=== PATIENT | female | born 1960 | race Caucasian/White ===

== ENCOUNTER → 2021-11-29 18:00 | Outpatient (BNVA) | payer OTHER, SELFPAY | PROVIDERS: Visit Provider Nurse Practitioner Family | DX: N39.0 Urinary tract infection, site not specified (principal) | CPT/HCPCS: 81000 ==

== ENCOUNTER → 2022-05-03 14:31 | Outpatient (BNVA) | payer OTHER, SELFPAY | PROVIDERS: Visit Provider Obstetrics & Gynecology | DX: Z01.411 Encounter for gynecological examination (general) (routine) with abnormal findings (principal) | CPT/HCPCS: 87624 ==

== ENCOUNTER 2022-06-02 13:26 | Outpatient (CLI) | payer OTHER, SELFPAY ==
--- NOTE | 2022-06-02 13:45 | US_ITS ---
WS: [id number] TRANSABDOMINAL PELVIC AND TRANSVAGINAL PELVIC ULTRASOUND HISTORY: N81.4 - Uterovaginal prolapse, unspecified COMPARISON: None available. Uterus: 6.2 cm x 4.3 cm x 3.1 cm. Uterus is anteverted. No fibroid or mass. There is mixed echogenici ty mass in the region of the cervix. There is widening of the cervix and mixed echogenicity mass with a few echogenic foci distending the cervix. Mass measures 14 x 11 mm in the cervix. Endometrium: 0.6 cm. Top normal size in a postmenopausal patient with a few cystic areas. Right ovary: 2.0 cm x 1.6 cm x 2.0 cm. Normal size and vascularity. No mass. Left ovary: 1.6 cm x 1.4 cm x 1.4 cm. Very difficult to visualize. Vascularity is difficult to obtain . No free fluid. US/US pelvic with transvaginal IMPRESSION: 1. Abnormal cervix. Mild widening of the cervix with heterogeneous soft tissue distending the cervical canal. Cervical mass measures 14 x 11 mm. If cervical biopsy has not been performed this should be attempted. 2. Top normal size endometrium with a few cystic areas. Recommend short-term follow-up ultrasound or biopsy.
== END 2022-06-02 13:27 | disposition home or self-care (01) ==
PROVIDERS: PCP Nurse Practitioner Family; Visit Provider Obstetrics & Gynecology
DX: N81.4 Uterovaginal prolapse, unspecified (principal)
CPT/HCPCS: 76830; 76856

== ENCOUNTER 2022-06-06 11:44 | Day surgery (SDC) | payer OTHER, SELFPAY ==
[2022-06-05 15:30] VITALS: BMI 28.6
--- NOTE | 2022-06-05 16:21 | P.HP_ITS ---
Providers/Chief Complaint Admitting Physician: Dr. Hou Primary Care Provider: Cindy Hidalgo APN History of Present Illness Katie Aguilar is a 61 year old female who saw me for consultation for a possible lesion on her cervix and cystocele.? She reports her last pap was in 2014.? She had an abnormal pap in the , but all normal since then.? They did no treatment for her abnormal pap, they just repeated and it was normal.? She was having RLQ pain and that is what caused her to go to the doctor.? On exam, the doctor saw a lesion on her cervix and a cystocele. She was referred to me. On exam, I saw the lesion in question. I performed a pap smear and ordered an ultrasound. I was unable to get a biopsy at that time, due to her large cystocele. I tentatively scheduled her for a hysterectomy, pending results of the pap and ultrasound. The pap was normal. The ultrasound shows a lesion 14x11 mm, which is distorting the cervix. I scheduled the patient for a cervical biopsy and possible leep procedure. Review of Systems General: Reports: 10 or more systems reviewed and unremarkable except in HPI and below Medications/Allergies Home Medications Medication Instructions Recorded Confirmed Last Taken Type psyllium husk 0.52 gram capsule 0.52 g PO DAILY 05/03/22 06/05/22 Unknown History atorvastatin 20 mg tablet 20 mg PO DAILY 06/05/22 06/05/22 Unknown History calcium 600 mg capsule 600 mg PO DAILY 06/05/22 06/05/22 Unknown History lisinopril 10 mg tablet 10 mg PO DAILY 06/05/22 06/05/22 Unknown History Allergies Allergy/AdvReac Type Severity Reaction Status Date / Time azacitidine Allergy Intermediate Rash Verified 05/03/22 13:43 azithromycin Allergy Intermediate Rash Verified 05/03/22 13:43 Penicillins Allergy Intermediate Rash Verified 05/03/22 13:43 PFSH Acute PFSH: Surgical History Status post cervical polyp removal (04/2022) Family History (Updated 05/03/22 @ 13:51 by Rosario Martinez MA) Mother Heart disease Hypertension Denies family history of Colon cancer Ovarian cancer Diabetes Hypercholesteremia Breast cancer Uterine cancer Thyroid disease Stroke Social History Smoking and tobacco status: never smoked Vitals/I&O/Wt Weight last 48 hrs Weight 172 lb Weight 172 lb Physical Exam Const: COMMON NORMALS: no acute distress, average body habitus, patient oriented x3, no limitations, healthy appearing, alert and well nourished GENERAL APPEARANCE: cooperative, comfortable, well kempt and well developed ORIENTATION/CONSCIOUSNESS: Yes awake, Yes oriented to person, Yes oriented to place and Yes oriented to time Resp: COMMON NORMALS: normal respiratory effort and clear to auscultation bilaterally EFFORT & INSPECTION: Yes able to speak in complete sentences Cardio: COMMON NORMALS: regular rate and regular rhythm GI: COMMON NORMALS: Soft to palpation and non-tender : COMMON NORMALS: Yes normal external appearance, Yes normal appearance of the vagina, Yes normal bimanual exam, Yes No adnexal tenderness and Yes no masses SPECULUM EXAM - CERVIX: Yes Cervical lesion present (wedge from 9:00 to 12:00) Extremity: COMMON NORMALS: no calf tenderness Psych: COMMON NORMALS: mental status grossly normal, Normal thought process present, cooperative, normal affect and speech normal A&P Assessment and plan (1) Lesion of cervix: plan colposcopy with cervical biopsy, possible leep procedure Risks, benefits and alternatives to procedure were discussed with the patient including but not limited to: pain, bleeding, infection, development of a blood clot or pulmonary embolism, damage to bowel, bladder, ureters, blood vessels, formation of scar tissue or even . . These are the most common complications, but there may be other, unforseen complications that could arise during surgery. The patient accepts these risks and desires to proceed. Status: Acute Attestations Medical Necessity Statement*: * the patient will have outpatient surgery and go home Coding Level of Care Code Acute [facility] Diagnoses Lesion of cervix N88.9
[2022-06-06] VITALS (7 sets, daily range): BP systolic 127–145; BP diastolic 88–96; PULSE 64–82; RESP 14–20; TEMP 36.4–36.6; O2SAT 95–98
[2022-06-06] MEDS: gabapentin 300 mg Capsule PO (12:35)
[2022-06-06] MEDS: sodium chloride 0.9% 1,000 ML 30 ML IV (12:35)
[2022-06-06] MEDS: acetaminophen 1,000 MG/100 ML PIGGYBACK 400 MG IV (12:36)
--- NOTE | 2022-06-06 12:52 | W.PM.OPSUD ---
Surgery/Procedure H&P Update DATE OF PROCEDURE: June 06, 2022 DATE H&P PERFORMED: 06/05/22 H&P UPDATE INFORMATION: I have reviewed H&P completed within last 30 days, I have examined patient prior to procedure and No changes to prior documentation PREOP DIAGNOSIS: cervical mass PLANNED PROCEDURE: Operation Date: 06/06/22 13:30 Proposed Procedures p Colposcopy with cervical biopsy 69153,N88.8(Not Applicable) - Harriett Hou MD Related Problem List Diagnoses (1) Lesion of cervix:
--- NOTE | 2022-06-06 12:53 | ANES.PREANE2 ---
Pre-Anesthetic Assessment Height/Weight: Height 1.65 m Weight 78.018 kg Preop Diagnosis: cervical mass Operation Date: 06/06/22 13:30 Proposed Procedures p Colposcopy with cervical biopsy 66258,N88.8(Not Applicable) - Harriett Hou MD Familial anesthetic complications: None Was Beta Darlene taken within 24 hours: N/A Was Clonidine taken within 24 hours: N/A Last intake: Intake Last Liquid Date 06/05/22 Last Liquid Time 20:00 Last Solid Date 06/05/22 Last Solid Time 20:00 Social No alcohol and No tobacco Exam alert, oriented x 3, clear to auscultation bilaterally and regular rate & rhythm Airway Mallampati: Class II Dentition: full CV/HEM Hypertension Metabolic Hyperlipidemia Anesthetic Plan ASA status: 2 Anesthesia: General Risk of > 500 ml blood loss (7ml/kg in children): No Medications/Allergies Home Medications Medication Instructions Recorded Confirmed Last Taken Type atorvastatin 20 mg tablet 20 mg PO DAILY 06/05/22 06/06/22 06/05/22 History calcium 600 mg capsule 600 mg PO DAILY 06/05/22 06/06/22 06/05/22 History lisinopril 10 mg tablet 10 mg PO DAILY 06/05/22 06/06/22 06/05/22 History Allergies Allergy/AdvReac Type Severity Reaction Status Date / Time azithromycin Allergy Intermediate Rash Verified 05/03/22 13:43 Penicillins Allergy Intermediate Rash Verified 05/03/22 13:43 Current Medications Generic Name Dose Route Start Last Admin Trade Name Freq PRN Reason Stop Dose Admin Gabapentin 300 mg 06/06/22 12:30 06/06/22 12:35 Gabapentin 300 Mg Capsule PO 300 mg ONCE GAIL Administration Sodium Chloride 1,000 mls @ 30 mls/hr 06/06/22 12:30 06/06/22 12:35 Sodium Chloride 0.9% IV 30 mls/hr .Q24H GAIL Administration PFSH Anesthesia Surgical History Status post cervical polyp removal (04/2022) Family History (Updated 05/03/22 @ 13:51 by Rosario Martinez MA) Mother Heart disease Hypertension Denies family history of Colon cancer Ovarian cancer Diabetes Hypercholesteremia Breast cancer Uterine cancer Thyroid disease Stroke Social History Smoking and tobacco status: never smoked Data Anesthesia Cardiac Studies: No Data to Display
[2022-06-06] MEDS: ceFAZolin 2,000 MG in sodium chloride 0.9% (plus) 50 ML 100 MG IV (14:07)
--- NOTE | 2022-06-06 14:44 | PM.OP ---
Operative Report Date of procedure: June 06, 2022 Pre-op diagnosis: Preop Diagnosis cervical mass Post-op diagnosis: same Post-op findings: small mass in cervical canal, removed with Loop excision Procedure done: loop excisional procedure Specimens removed/disposition: anterior and posterior cervix to pathology Surgeon: Harriett Hou Anesthesia: MAC Estimated blood loss (mL): 0 IV fluids (mL): 700 Urine output (mL): 0 Complications: none Condition: stable Disposition: PACU Procedure: The patient was taken to the operating room where monitored anesthesia was administered and found to be adequate. A weighted speculum was placed into the vagina and the anterior lip of the cervix was grasped with a single-tooth tenaculum. Inspection revealed a small anterior mass in the cervical canal. Using an 8 x 10 loop I made 1 pass and removed the mass. I performed another sweep of the posterior. There was excellent hemostasis. All instruments were removed. sponge lap and needle counts were correct x3. She was taken to the recovery room in stable condition.
--- NOTE | 2022-06-06 14:53 | SUR.PHASEI ---
1447 PT TO PACU SLEEPY WITH GOOD RESP EFFORT, MONITOR SR NO ECTOPY NOTED IV TO RT AC #20 WITH NS 250 ML UP AT KVO RATE PER GRAVITY, ID BAND TO RT WRIST, PT ID'D WITH 2 IDENTIFIERS, VSS. ABDOMEN SOFT WITH CANDE PAD D/I BILAT SCDS ON .
--- NOTE | 2022-06-06 14:59 | PM.DCS ---
Discharge Providers Date of Admission: 06/06/22 Date of Discharge: June 06, 2022 Attending Provider at Discharge: Harriett Hou MD Primary Care Provider: Cindy Hidalgo APN Diagnoses at Discharge Discharge Diagnosis (1) Lesion of cervix: Status: Acute Hospital Course Hospital Course The patient was admitted for a procedure. She did well postoperatively and was ready for discharge. Discharge Data Studies Completed and Pending Pending at discharge Category Date Time Status Pathology: Surgical [PTH] Routine Pth 06/06/22 14:43 Received Vitals Last Vital Signs Temp 97.6 F 06/06/22 14:48 Pulse 78 06/06/22 14:55 Resp 20 H 06/06/22 14:55 BP 136/95 06/06/22 14:55 Pulse Ox 96 06/06/22 14:55 Discharge Plan Discharge Patient Disposition: Home Condition: Stable Prescriptions: Continued calcium 600 mg Capsule 600 mg PO DAILY 0RF atorvastatin 20 mg Tablet 20 mg PO DAILY 0RF lisinopril 10 mg Tablet 10 mg PO DAILY 0RF Discharge Orders: Discharge Order (Routine); Ordered 06/06/22 Ordered By: Harriett Hou Discharge Attestations Time Spent in Discharge Care*: less than 30 min Quality Metrics Clinical Quality Measures [ No reported AMI, CVA or VTE this stay] Coding Level of Care Code Acute g [facility] note Diagnoses Lesion of cervix N88.9
--- NOTE | 2022-06-06 15:09 | ANE.PACU2 ---
Inpatient post-anesthesia follow up: Airway intact: Yes Vital signs: Temperature 97.8 F Pulse Rate 71 Respiratory Rate 16 Blood Pressure 136/95 Pulse Oximetry 98 Oxygen Delivery Me thod Room Air Oxygen Flow Rate Fraction of Inspir ed Oxygen Hydration adequate: Yes Nausea and vomiting: No Pain level: 1 Mental status: Baseline
== END 2022-06-06 15:58 | disposition home or self-care (01) ==
PROVIDERS: PCP Nurse Practitioner Family; Visit Provider Obstetrics & Gynecology
PROC: 0UJH8ZZ Inspection of Vagina and Cul-de-sac, Via Natural or Artificial Opening Endoscopic (ICD-10-PCS; CPT 57460; principal; 2022-06-06 13:20)
DX: N88.8 Other specified noninflammatory disorders of cervix uteri (principal)
CPT/HCPCS: 57460; 88307; J1100; J2405; J2704; J3010; J7030

== ENCOUNTER 2022-06-13 10:21 | Observation (INO) | payer OTHER, SELFPAY ==
[2022-06-07 12:46] VITALS: BMI 29.2
[2022-06-07 13:30] LABS: Basophils % 0.2 %; Hematocrit 41.7 % (37.0-47.0); Hemoglobin 14.1 g/dL (11.5-15.3); Lymphocytes % 10.1 %; Mean Corpuscular HGB Conc 33.8 g/dL (30.0-36.0); Mean Corpuscular Hemoglobin 30.8 pg (28.0-34.0); Mean Platelet Volume 10.4 fL (7.4-10.4); Monocytes # 1.2 10^3/uL (0.2-0.9); Monocytes % 6.1 %; Neutrophils # 16.62 10^3/uL (1.8-7.7); Nucleated Red Blood Cells % 0 %; Platelet Count 316 10^3/cmm (130-400); Red Blood Count 4.58 10^6/uL (4.1-5.3); Red Cell Distribution Width 11.2 % (12.1-15.1)
[2022-06-07 13:54] LABS: Anion Gap 16.2 (5-19); Blood Urea Nitrogen 14 mg/dL (8-23); Calcium 9.9 mg/dL (8.5-10.5); Carbon Dioxide 25 mmol/L (22-29); Chloride 102 mmol/L (98-107); Creatinine Clr Calc Pharmacy 72.3409; Glomerular Filtration Rate 72.4 mL/min (90-130); Glucose 128 mg/dL (65-115); Osmolality Calculated 290 mOsm/kg (285-295); Potassium 4.2 mmol/L (3.5-5.1); Sodium 139 mmol/L (136-145)
--- NOTE | 2022-06-07 15:01 | ANES.PREANE2 ---
Pre-Anesthetic Assessment Height/Weight: Height 1.63 m Weight 77.111 kg Preop Diagnosis: cervical mass Operation Date: 06/13/22 07:00 Proposed Procedures p Laparoscopic assisted vaginal hysterectomy, bilateral salpingectomy 99026, anterior and posterior repair 29367, mid urethral sling 85759,N81.4(Not Applicable) - Harriett Hou MD s Salpingectomy(Bilateral) - Harriett Hou MD s Anterior Repair(Not Applicable) - Harriett Hou MD s Posterior Repair(Not Applicable) - Harritet Hou MD s Sling Single Incision Midurethral Sling(Not Applicable) - Harriett Hou MD Familial anesthetic complications: None Was Beta Darlene taken within 24 hours: N/A Was Clonidine taken within 24 hours: N/A Social No alcohol and No tobacco Exam alert, oriented x 3, clear to auscultation bilaterally and regular rate & rhythm Airway Submandibular: within normal limits Cervical ROM: within normal limits Mallampati: Class I Comments: Comments: Missing some teeth History/ROS No significant complaints Pulmonary None reported CV/HEM Hypertension Uterine prolapse Cystocele Hepatic None reported GI Gastroesophageal Reflux Disease and None reported Metabolic None reported Musc/skel None reported Neuropsych None reported Anesthetic Plan ASA status: 2 Anesthesia: Anesthesia Evaluation and General Other: We discussed risk and benefits of general anesthesia including PONV, sore throat (sometimes severe), corneal abrasion, positioning and peripheral nerve injuries, life threatening allergic reaction, post operative ICU admission requiring prolonged intubation, stroke, heart attack, , and rare incidences of recall. Patient consents to proceed with general anesthesia. Risk of > 500 ml blood loss (7ml/kg in children): No Medications/Allergies Home Medications Medication Instructions Recorded Confirmed Last Taken Type atorvastatin 20 mg tablet 20 mg PO DAILY 06/05/22 06/07/22 06/05/22 History calcium 600 mg capsule 600 mg PO DAILY 06/05/22 06/07/22 06/05/22 History lisinopril 10 mg tablet 10 mg PO DAILY 06/05/22 06/07/22 06/05/22 History Allergies Allergy/AdvReac Type Severity Reaction Status Date / Time azithromycin Allergy Intermediate Rash Verified 06/07/22 12:45 Penicillins Allergy Intermediate Rash Verified 06/07/22 12:45 [facility] Anesthesia Surgical History Status post cervical polyp removal (04/2022) Family History Mother Heart disease Hypertension Denies family history of Colon cancer Ovarian cancer Diabetes Hypercholesteremia Breast cancer Uterine cancer Thyroid disease Stroke Social History Smoking and tobacco status: never smoked Data Anesthesia : 06/07/22 12:55 06/07/22 12:55 Short CBC 06/07/22 Range/Units 12:55 WBC 20.0 H (4.0-10.0) 10^3/uL Hgb 14.1 (11.5-15.3) g/dL Hct 41.7 (37.0-47.0) % MCV 91.0 (81-99) fl Plt Count 316 (130-400) 10^3/cmm Neut % (Auto) 83.0 % Neut # (Auto) 16.62 H (1.8-7.7) 10^3/uL BMP 06/07/22 12:55 Sodium 139 Potassium 4.2 Chloride 102 Carbon Dioxide 25 BUN 14 Creatinine 0.8 Glucose 128 H Calcium 9.9 Cardiac Studies: No Data to Display
[2022-06-13] VITALS (21 sets, daily range): BP systolic 93–174; BP diastolic 60–106; PULSE 57–71; RESP 14–18; TEMP 36.6–37.3; O2SAT 92–95
[2022-06-13] MEDS: sodium chloride 0.9% 1,000 ML 30 ML IV (06:29)
[2022-06-13 06:39] LABS: Basophils % 0.4 %; Eosinophils # 0.2 10^3/uL (0.0-0.8); Eosinophils % 1.5 %; Hematocrit 43.6 % (37.0-47.0); Hemoglobin 14.9 g/dL (11.5-15.3); Lymphocytes # 2.2 10^3/uL (0.8-4.8); Lymphocytes % 21.3 %; Mean Corpuscular HGB Conc 34.2 g/dL (30.0-36.0); Mean Corpuscular Hemoglobin 31.1 pg (28.0-34.0); Mean Platelet Volume 10.3 fL (7.4-10.4); Monocytes # 0.8 10^3/uL (0.2-0.9); Monocytes % 7.3 %; Neutrophils % 69.2 %; Nucleated Red Blood Cells % 0 %; Platelet Count 281 10^3/cmm (130-400); Red Blood Count 4.79 10^6/uL (4.1-5.3); Red Cell Distribution Width 11.4 % (12.1-15.1); White Blood Count 10.4 10^3/uL (4.0-10.0)
[2022-06-13] MEDS: phenazopyridine 100 mg Tablet 200 MG PO (06:50)
[2022-06-13] MEDS: acetaminophen 1,000 MG/100 ML PIGGYBACK 400 MG IV (06:50)
[2022-06-13] MEDS: gabapentin 300 mg Capsule PO (06:50)
[2022-06-13] MEDS: CELEcoxib 200 mg Capsule 400 MG PO (06:50)
[2022-06-13] MEDS: ceFAZolin 2,000 MG in sodium chloride 0.9% (plus) 50 ML 100 MG IV ×3 (07:00→23:03)
--- NOTE | 2022-06-13 07:02 | W.PM.OPSUD ---
Surgery/Procedure H&P Update DATE OF PROCEDURE: June 13, 2022 DATE H&P PERFORMED: 06/05/22 H&P UPDATE INFORMATION: I have reviewed H&P completed within last 30 days, I have examined patient prior to procedure and Changes to prior documentation as noted here CHANGES TO PREVIOUS DOCUMENTATION: The cervical biopsy showed likely nabothian cyst. No malignancy identified. PREOP DIAGNOSIS: uterine prolapse PLANNED PROCEDURE: Operation Date: 06/13/22 07:00 Proposed Procedures p Laparoscopic assisted vaginal hysterectomy, bilateral salpingectomy 75946, anterior and posterior repair 49495, mid urethral sling 11559,N81.4(Not Applicable) - Harriett Hou MD s Salpingectomy(Bilateral) - Harriett Hou MD s Anterior Repair(Not Applicable) - Harriett Hou MD s Posterior Repair(Not Applicable) - Harriett Hou MD s Sling Single Incision Midurethral Sling(Not Applicable) - Harriett Hou MD Related Problem List Diagnoses (1) Lesion of cervix: (2) Uterine prolapse: (3) Cystocele:
--- NOTE | 2022-06-13 07:23 | P.ANESUD_ITS ---
Pre-Anesthetic Update Pre-Anesthetic Assessment: Date of Surgery/Procedure: 06/13/22 Preop Ariadna gnosis: uterine prolapse Proposed Procedure: Operation Date: 06/13/22 07:00 Proposed Procedures p Laparoscopic assisted vaginal hysterectomy, bilateral salpingectomy 57865, anterior and posterior repair 76906, mid urethral sling 45033,N81.4(Not Applicable) - Harriett Hou MD s Salpingectomy(Bilateral) - Harriett Hou MD s Anterior Repair(Not Applicable) - Harriett Hou MD s Posterior Repair(Not Applicable) - Harriett Hou MD s Sling Single Incision Midurethral Sling(Not Applicable) - Harriett Hou MD Any changes to Pre-Anesthetic Assessment?: No Last Intake: Intake Last Liquid Date 06/12/22 Last Liquid Time 22:00 Last Solid Date 06/12/22 Last Solid Time 18:00 Labs Last 48hrs: Short CBC 06/13/22 Range/Units 06:11 WBC 10.4 H (4.0-10.0) 10^3/ uL Hgb 14.9 (11.5-15.3) g/dL Hct 43.6 (37.0-47.0) % MCV 91.0 (81-99) fl Plt Count 281 (130-400) 10^3/c mm Neut % (Auto) 69.2 % Neut # (Auto) 7.20 (1.8-7.7) 10^3/u L Vitals: Temperature 99.2 F 06/13/22 05:56 Temperature Source Temporal Artery S can 06/13/22 05:56 Pulse Rate 71 06/13/22 05:56 Respiratory Rate 18 06/13/22 05:56 Blood Pressure 174/106 06/13/22 05:56 Blood Pressure Muriel n 128 06/13/22 05:56 Pulse Oximetry 94 06/13/22 05:56 Oxygen Delivery Me thod 06/13/22 05:58 Exam: Pre-Anes Outpt Exam: alert, oriented x 3, clear to auscultation bilaterally and regular rate & rhythm Cardiac Studies: No Data to Display
--- NOTE | 2022-06-13 08:01 | SUR.OPER ---
family updated of surgical status
[2022-06-13] MEDS: vasopressin 20 unit/mL INJ INJECTION (09:00)
--- NOTE | 2022-06-13 10:21 | P.OP_ITS ---
Operative Report Date of procedure: June 13, 2022 Pre-op diagnosis: Preop Diagnosis uterine prolapse Post-op diagnosis: same Post-op findings: large cystocele and uterine prolapse, grade 2 rectocele Procedure done: LAVH, bilateral salpingectomy, anterior, colporrhaphy, perineorrhaphy, cystoscopy Specimens removed/disposition: uterus, bilateral fallopian tubes to pathology Surgeon: Harriett Hou Anesthesia: General Estimated blood loss (mL): 150 IV fluids (mL): 1,200 Urine output (mL): 400 Complications: none Condition: stable Disposition: PACU Procedure: The patient was taken to the operating room where general anesthesia was administered and found to be adequate. She was prepped and draped in the normal sterile fashion in the dorsal lithotomy position in [facility]. A Schmitt catheter was placed. A weighted speculum was placed into the vagina and the anterior lip of the cervix was grasped with a single tooth tenaculum. The Zumi uterine manipulator was placed. The weighted speculum was removed. The gloves were changed and attention was turned to the abdomen. A 5 mm infraumbilical incision was made. Using a 5 mm port with the camera, the port was placed into the abdomen. The abdomen was insufflated. Two low, lateral 5 mm ports were placed on the left and right under direct visualization from the camera. The right tube was grasped and elevated. Using the laparoscopic cautery, the mesosalpinx was divided between the ovary and tube. The tube was removed. This was performed the same way on the left. The uteroovarian ligaments as well as the round ligaments were ligated. Attention was then turned to the vaginal portion of the procedure. The weighted speculum was placed into the vagina. The zumi manipulator was removed. The single tooth tenaculum was removed and replaced with the radha's tenaculum. 10 mL of dilute Pitressin was injected at the vesicovaginal juncti on. A circumferential incision was made at the vesicovaginal junction and the vaginal mucosa reflected cephalad. The posterior peritoneum was entered sharply with the Metzenbaum scissors and the long weighted speculum replaced. Using the Tj clamps the uterosacral ligaments were clamped cut and suture-ligated. The anterior peritoneum was entered sharply with the metzenbaum scissors. Then s equentially the uterine arteries and cardinal ligaments were clamped cut and suture-ligated. A single-tooth tenaculum was used to deliver the uterus. The remaining segement of the utero-ovarian ligaments were clamped cut and suture- ligated bilaterally and the specimen was removed. There was good hemostasis with only mild bleeding from the cuff. The peritoneum was closed with a pursestring using 2-0 Vicryl. The vaginal cuff was closed with 0 Vicryl in a running locked pattern incorporating the uterosacral ligaments into the lateral aspects of the vaginal cuff. The vaginal cuff was identified and an allis clamp was placed in the midline of the vaginal mucosa, approximately 2 cm anterior to the cuff. A second allis clamp was placed in the midline of the vaginal mucosa, approximately 3 cm from the introitus. An incision was made in the midline from clamp to clamp. The vaginal mucosa was clamped laterally and the cystocle dissected off of the vesicovaginal fascia. The cystocele was packed away and the vesicovaginal fascia brought together in the midline with figure of 8 interrupted sutures of O-Vicryl. The packing was removed and the excess vaginal tissue trimmed. The incision was repaired with 0-Vicryl in a running fashion. Attention was then turned to the perineorrhphy. Allis clamps were placed on the posterior fourchette. A 3 cm wedge of the fourchette was removed. This was repaired in the usual fashion with O-vicryl. The Schmitt catheter was removed and the cystoscope advanced into the bladder. The patient was given pyridium and bilateral spill was noted. There were no injuries or deficits noted in the bladder. The cystoscope was removed and the Schmitt was replaced. Vaginal packing was placed for good hemostasis. The gloves and gowns were changed and attention was turned to the abdomen. The ports were closed with 2-0 monocryl with skin glue. The patient tolerated the procedure well. Sponge lap and needle counts were correct x3. She was taken to the recovery room in stable condition.
[2022-06-13] MEDS: dextrose 5%-sod chloride 0.9% 1,000 ML 125 ML IV ×2 (11:54→19:43)
[2022-06-13] MEDS: ketorolac 30 mg/mL INJ IVP ×3 (11:54→23:04)
--- NOTE | 2022-06-13 15:56 | ANE.PACU2 ---
Inpatient post-anesthesia follow up: Airway intact: Yes Vital signs: Temperature 97.8 F Pulse Rate 57 Respiratory Rate 14 Blood Pressure 108/71 Pulse Oximetry 93 Oxygen Delivery Me thod Room Air Oxygen Flow Rate Fraction of Inspir ed Oxygen Hydration adequate: Yes Nausea and vomiting: No Pain level: 3 Mental status: Baseline
[2022-06-13] MEDS: HYDROcodone-acetaminophen 5-325 mg Tablet PO (16:57)
[2022-06-13] MEDS: docusate sodium 100 mg Capsule PO (19:43)
--- NOTE | 2022-06-13 20:30 | PC.NURSE ---
Patient ambulated 2 laps around the unit.
[2022-06-14] MEDS: HYDROcodone-acetaminophen 5-325 mg Tablet PO (03:47)
[2022-06-14 04:00] VITALS: BP 115/65; PULSE 64; TEMP 36.7; O2SAT 95
[2022-06-14] MEDS: ketorolac 30 mg/mL INJ IVP (05:08)
--- NOTE | 2022-06-14 06:10 | PC.NURSE ---
Schmitt present upon admission to OB following surgery.
[2022-06-14 06:13] LABS: Hematocrit 32.9 % (37.0-47.0); Hemoglobin 11.5 g/dL (11.5-15.3); Mean Corpuscular Hemoglobin 31.2 pg (28.0-34.0); Mean Corpuscular Volume 89.2 fl (81-99); Mean Platelet Volume 10.8 fL (7.4-10.4); Platelet Count 243 10^3/cmm (130-400); Red Blood Count 3.69 10^6/uL (4.1-5.3); Red Cell Distribution Width 11.4 % (12.1-15.1); White Blood Count 16.4 10^3/uL (4.0-10.0)
--- NOTE | 2022-06-14 07:25 | P.DS_ITS ---
Discharge Providers Date of Admission: 06/13/22 10:21 Date of Discharge: June 14, 2022 Attending Provider at Admission: Harriett Hou MD Attending Provider at Discharge: Harriett Hou MD Primary Care Provider: Cindy Hidalgo APN Diagnoses at Discharge Discharge Diagnosis (1) Lesion of cervix: Status: Acute (2) Uterine prolapse: Status: Acute (3) Cystocele: Status: Acute Hospital Course Hospital Course The patient was admitted for surgery. She did well postoperatively and was ready for discharge on day #1 Physical Exam Narrative: The patient is doing well this morning. She reports a lot of pain relief once the catheter and packing was removed. Const: COMMON NORMALS: no acute distress, average body habitus, patient oriented x3, no limitations, healthy appearing, alert and well nourished GENERAL APPEARANCE: cooperative, comfortable, well kempt and well developed Resp: COMMON NORMALS: normal respiratory effort EFFORT & INSPECTION: Yes able to speak in complete sentences GI: COMMON NORMALS: Soft to palpation and non-tender PALPATION: Yes Soft to palpation Extremity: COMMON NORMALS: no calf tenderness Neuro: COMMON NORMALS: patient oriented x3 SENSORIUM/ORIENTATION: Yes alert Psych: COMMON NORMALS: mental status grossly normal, Normal thought process present, cooperative, normal affect and speech normal APPEARANCE: Yes well kempt SPEECH: Yes normal speech THOUGHT PROCESS: Normal thought process present Urinary Catheter Management: Schmitt Latex: Cath Placed During This Visit: yes, but has since been removed by the nurse Reason for Continuing Indwelling Catheter: Perioperative Use in Selected Surgeries Urinary Catheter Date of Insertion: 06/13/22 Date Urinary Catheter Removed: 06/14/22 Time Urinary Catheter Discontinued: 06:00 Discharge Data Studies Completed and Pending Pending at discharge Category Date Time Status Retype for Patiets ABO/Rh Routine Lab 06/07/22 15:40 Received Type and Screen Routine Lab 06/09/22 15:42 Uncollected Urine Culture Routine Lab 06/13/22 07:38 Received Pathology: Surgical [PTH] Routine Pth 06/13/22 10:14 Received Laboratory Results WBC 16.4 10^3/uL (4.0-10.0) H 06/14/22 05:15 RBC 3.69 10^6/uL (4.1-5.3) L 06/14/22 05:15 Hgb 11.5 g/dL (11.5-15.3) 06/14/22 05:15 Hct 32.9 % (37.0-47.0) L 06/14/22 05:15 MCV 89.2 fl (81-99) 06/14/22 05:15 MCH 31.2 pg (28.0-34.0) 06/14/22 05:15 MCHC 35.0 g/dL (30.0-36.0) 06/14/22 05:15 RDW 11.4 % (12.1-15.1) L 06/14/22 05:15 Plt Count 243 10^3/cmm (130-400) 06/14/22 05:15 MPV 10.8 fL (7.4-10.4) H 06/14/22 05:15 Neut % (Auto) 69.2 % 06/13/22 06:11 Lymph % (Auto) 21.3 % 06/13/22 06:11 [place] % (Auto) 7.3 % 06/13/22 06:11 Eos % (Auto) 1.5 % 06/13/22 06:11 Baso % (Auto) 0.4 % 06/13/22 06:11 Neut # (Auto) 7.20 10^3/uL (1.8-7.7) 06/13/22 06:11 Lymph # (Auto) 2.2 10^3/uL (0.8-4.8) 06/13/22 06:11 [place] # (Auto) 0.8 10^3/uL (0.2-0.9) 06/13/22 06:11 Eos # (Auto) 0.2 10^3/uL (0.0-0.8) 06/13/22 06:11 Baso # (Auto) 0.0 10^3/uL (0.0-0.1) 06/13/22 06:11 Nucleated RBC % (auto) 0 % 06/13/22 06:11 Nucleated RBCs # 0.0 /100WBC 06/13/22 06:11 Sodium 139 mmol/L (136-145) 06/07/22 12:55 Potassium 4.2 mmol/L (3.5-5.1) 06/07/22 12:55 Chloride 102 mmol/L (98-107) 06/07/22 12:55 Carbon Dioxide 25 mmol/L (22-29) 06/07/22 12:55 Anion Gap 16.2 (5-19) 06/07/22 12:55 BUN 14 mg/dL (8-23) 06/07/22 12:55 Creatinine 0.8 mg/dL (0.5-0.9) 06/07/22 12:55 GFR Calculation 72.4 mL/min (90-130) L 06/07/22 12:55 Glucose 128 mg/dL (65-115) H 06/07/22 12:55 Calculated Osmolality 290 mOsm/kg (285-295) 06/07/22 12:55 Calcium 9.9 mg/dL (8.5-10.5) 06/07/22 12:55 Blood Type O Positive 06/13/22 06:11 Rho(D) Type Positive 06/13/22 06:11 Antibody Screen Negative 06/13/22 06:11 Vitals Last Vital Signs Temp 98.1 F 06/14/22 04:00 Pulse 64 06/14/22 04:00 Resp 14 06/13/22 11:58 BP 115/65 06/14/22 04:00 Pulse Ox 95 06/14/22 04:00 O2 Del Method 06/14/22 04:00 Discharge Plan Discharge Patient Disposition: Home Condition: Stable Prescriptions: New ibuprofen 800 mg Tablet 800 mg PO Q8H Qty: 30 0RF hydrocodone-acetaminophen 5-325 mg Tablet 1 tab PO Q4H PRN (Reason: Moderate To Severe Pain) Qty: 30 0RF docusate sodium 100 mg Capsule 100 mg PO BID Qty: 60 0RF Continued calcium 600 mg Capsule 600 mg PO DAILY atorvastatin 20 mg Tablet 20 mg PO DAILY lisinopril 10 mg Tablet 10 mg PO DAILY Discharge Orders: Discharge Order (Routine); Ordered 06/14/22 Ordered By: Harriett Hou Referrals: Harriett Hou MD [Physician] - 06/19/22 8:00 am (1 week post-op: 06/19/22 @8:00. 6 week post-op: 07/24/22 @8:45. ) Patient Instructions: Laparoscopic Hysterectomy (DC), Anterior Vaginal Repair (DC), Posterior Vaginal Repair (DC), OB Discharge Report, OB Laproscopic Surgery - [facility], OB Food/Drug Interaction Guide, Opioid Safety Discharge Attestations Time Spent in Discharge Care*: less than 30 min Quality Metrics Clinical Quality Measures [ No reported AMI, CVA or VTE this stay] Coding Level of Care Code Acute Chg FW DC note Diagnoses Lesion of cervix N88.9 Uterine prolapse N81.4 Cystocele
[2022-06-14 09:10] VITALS: BP 107/70; PULSE 72; RESP 18; TEMP 37.1; O2SAT 99
[2022-06-14] MEDS: docusate sodium 100 mg Capsule PO (09:12)
[2022-06-14] MEDS: atorvastatin 40 mg Tablet 20 MG PO (09:18)
== END 2022-06-14 09:20 | disposition home or self-care (01) ==
LOC: OBGYN 10:21
PROVIDERS: Anesthesiology; Admitting Provider Obstetrics & Gynecology; PCP Nurse Practitioner Family; Visit Provider Obstetrics & Gynecology
PROC: 0UT9FZZ Resection of Uterus, Via Natural or Artificial Opening With Percutaneous Endoscopic Assistance (ICD-10-PCS; CPT 58240; principal; 2022-06-13 07:00)
PROC: 0JQC0ZZ Repair Pelvic Region Subcutaneous Tissue and Fascia, Open Approach (ICD-10-PCS; CPT 57240; 2022-06-13 07:00)
PROC: (CPT 57250; 2022-06-13 07:00)
PROC: 0TJB8ZZ Inspection of Bladder, Via Natural or Artificial Opening Endoscopic (ICD-10-PCS; CPT 52000; 2022-06-13 07:00)
PROC: (CPT 58661; 2022-06-13 07:00)
DX: N81.4 Uterovaginal prolapse, unspecified (principal); I10 Essential (primary) hypertension; K21.9 Gastro-esophageal reflux disease without esophagitis
CPT/HCPCS: 58240; 58552; 36415; 80048; 85025; 85027; 86850; 86900; 87086; 88305; G0378; J1100; J1170; J1885; J1940; J2250; J2370; J2405; J2704; J2710; J3010; J3490; J7030

== ENCOUNTER 2024-10-23 08:45 | Outpatient (CLI) | payer MEDICARE, OTHER, SELFPAY ==
--- NOTE | 2024-10-23 09:00 | MM_ITS ---
WS: [id number] BILATERAL SCREENING DIGITAL TOMOSYNTHESIS MAMMOGRAM WITH CAD HISTORY: SCREENING COMPARISON: 01/22/2015 Bilateral CC and MLO views with tomosynthesis and synthetic mammography submitted. Computer aided det ection analyzed. Breast composition: The breasts are heterogeneously dense, which may obscure small masses. No suspici ous masses, microcalcifications or architectural distortion. Similar asymmetries compared to the prio r study from 2015. New rodlike calcifications LEFT lateral breast. No suspicious grouping of calcific ation. MM/MM scr tomosynthesis [id number] IMPRESSION: BI-RADS: 2 - Benign FOLLOW UP: 1 Year Follow-up
== END 2024-10-23 08:46 | disposition home or self-care (01) ==
LOC: MOBLMAM 09:01
PROVIDERS: PCP Nurse Practitioner Family; Visit Provider Nurse Practitioner Family
DX: Z12.31 Encounter for screening mammogram for malignant neoplasm of breast (principal); R92.333 Mammographic heterogeneous density, bilateral breasts; N64.89 Other specified disorders of breast; R92.1 Mammographic calcification found on diagnostic imaging of breast
CPT/HCPCS: 77063; 77067